=== PATIENT | female | born 1965 | race Caucasian/White ===

== ENCOUNTER → 2017-05-31 | Outpatient (CLI) | payer OTHER ==
[~2017-05-31] MED LIST: ALBINS/ INH; ALBUAER2 INH; ASPI81TA28 PO; CYCL5TAB PO; EPP3; FLUT220A INH; FURO20TA PO; HYDR-3763 PO; HYDR5SYP11 PO; NTRGSL/4 SL; ONDA8TAB62 SL; POTA20TA16 PO; TIOTCAP INH
[2017-05-31 18:49] LABS: BLOOD UREA NITROGEN 4 mg/dl (7-18); CREATININE 1.01 mg/dl (0.60-1.20); GLUCOSE 135 mg/dl (70-99)
[2017-05-31 18:50] LABS: SODIUM 135 mmol/L (136-145)
[2017-05-31 18:52] LABS: CALCIUM 8.6 mg/dl (8.5-10.1); CARBON DIOXIDE 30 mmol/L (21-32)
[2017-05-31 20:44] LABS: POTASSIUM 2.3 mmol/L (3.5-5.1)
== END | disposition home or self-care (01) ==
LOC: C.LABMFLN 12:38
PROVIDERS: ATTEND Physician Assistant
DX: R25.2 Cramp and spasm (principal)

== ENCOUNTER → 2017-06-14 | Outpatient (CLI) | payer OTHER ==
[2017-06-14 18:31] LABS: BLOOD UREA NITROGEN 6 mg/dl (7-18); CALCIUM 8.8 mg/dl (8.5-10.1); CARBON DIOXIDE 22 mmol/L (21-32); CREATININE 0.98 mg/dl (0.60-1.20); GLUCOSE 93 mg/dl (70-99); POTASSIUM 4.3 mmol/L (3.5-5.1); SODIUM 134 mmol/L (136-145)
== END | disposition home or self-care (01) ==
LOC: C.LABMFLN 11:59
PROVIDERS: ATTEND Internal Medicine
DX: E87.6 Hypokalemia (principal)

== ENCOUNTER → 2017-06-18 | Outpatient (CLI) | payer OTHER ==
[2017-06-18 18:09] LABS: BLOOD UREA NITROGEN 5 mg/dl (7-18); CALCIUM 8.5 mg/dl (8.5-10.1); CARBON DIOXIDE 26 mmol/L (21-32); CREATININE 1.02 mg/dl (0.60-1.20); GLUCOSE 112 mg/dl (70-99); POTASSIUM 3.8 mmol/L (3.5-5.1); SODIUM 134 mmol/L (136-145)
== END | disposition home or self-care (01) ==
LOC: C.LABMFLN 12:48
PROVIDERS: ATTEND Physician Assistant
DX: E87.6 Hypokalemia (principal)

== ENCOUNTER → 2017-07-11 | Outpatient (CLI) | payer OTHER ==
[~2017-07-11] MED LIST changes: +POTA-639 PO; -POTA20TA16 PO
--- NOTE | 2017-07-11 14:07 | DIAGNOSTIC IMAGING REPORT ---
PET/CT HISTORY: LUNG CANCER TECHNIQUE: PET/CT was performed from the base of the skull through the pelvis following the intravenous administration of mCi of F18-FDG. Non-contrast CT imaging was performed over the same range without breath-hold for attenuation correction of PET images and anatomic correlation, but not for primary interpretation as it is not of standard diagnostic quality. CT DOSE: COMPARISON: Head CT 04/14/2015. Chest CT 06/19/2017. FINDINGS: HEAD AND NECK: There is no FDG-avid disease or significant lymphadenopathy in the imaged portions of the head and the neck. CHEST: Mild emphysema. Prior right upper lobectomy. Stable linear right perihilar scarlike density and T2 material. 7 mm groundglass nodule within the base the right lower lobe. This appears stable from the recent chest CT. This is not demonstrate abnormal FDG uptake but is likely below the threshold for PET imaging. Stable prominent paratracheal and prevascular lymph nodes. These measure up to 9 mm in short axis diameter. These do not demonstrate significant FDG uptake. No FDG avid or enlarged hilar lymph nodes. The right Port-A-Cath terminates in the right atrium. ABDOMEN/PELVIS: Below the diaphragm, tracer is distributed physiologically in the gastrointestinal and genitourinary tracts. There is no significant lymphadenopathy and no FDG-avid disease. MUSCULOSKELETAL: There is no FDG-avid or destructive bone lesion. IMPRESSION: 1. No FDG avid disease. 2. Stable prominent mediastinal lymph nodes. However, these do not demonstrate significant FDG uptake at this time. 3. A 7 mm groundglass nodule within the base of the right lower lobe. This does not demonstrate abnormal FDG uptake but is likely below the threshold for PET imaging. Six-month chest CT follow up is recommended to ensure stability. Electronically signed by: Tarun Bo M.D. 07/11/2017 2:06 PM Dictated Date/Time: 07/11/2017 1:26 PM
== END | disposition home or self-care (01) ==
LOC: C.PET 10:24
PROVIDERS: ATTEND Physician Assistant
DX: R91.1 Solitary pulmonary nodule (principal)

== ENCOUNTER → 2017-07-17 | Outpatient (CLI) | payer OTHER ==
[2017-07-17 17:47] LABS: BASO % 0.3 %; BASO ABS # 0.02 K/uL (0-0.2); EOS % 1.5 %; EOS ABS # 0.09 K/uL (0-0.5); HEMATOCRIT 42.3 % (37-47); HEMOGLOBIN 14.8 g/dL (12.0-16.0); IG# 0.01 K/uL (0.00-0.02); LYMPH % 32.2 %; LYMPH ABS # 1.95 K/uL (1.2-3.4); MEAN CELL VOLUME 98.8 fL (80-100); MEAN CORPUSCULAR HEMOGLOBIN 34.6 pg (25-34); MEAN PLATELET VOLUME 9.4 fL (7.4-10.4); MONO % 6.8 %; MONO ABS # 0.41 K/uL (0.11-0.59); NEUT ABS # 3.57 K/uL (1.4-6.5); PLATELET COUNT 253 K/uL (130-400); RED CELL DISTRIBUTION WIDTH CV 13.4 % (11.5-14.5); WHITE BLOOD COUNT 6.05 K/uL (4.8-10.8)
[2017-07-17 18:00] LABS: PTT PATIENT 27.8 SECONDS (21.0-31.0)
[2017-07-17 18:03] LABS: BLOOD UREA NITROGEN 4 mg/dl (7-18); CALCIUM 8.4 mg/dl (8.5-10.1); CARBON DIOXIDE 26 mmol/L (21-32); CREATININE 0.83 mg/dl (0.60-1.20); GLUCOSE 102 mg/dl (70-99); POTASSIUM 3.2 mmol/L (3.5-5.1); SODIUM 136 mmol/L (136-145)
== END | disposition home or self-care (01) ==
LOC: C.LABMFLN 12:47
PROVIDERS: ATTEND Physician Assistant
DX: J45.909 Unspecified asthma, uncomplicated (principal); J44.9 Chronic obstructive pulmonary disease, unspecified; R91.8 Other nonspecific abnormal finding of lung field; R06.02 Shortness of breath; R05 Cough; E87.6 Hypokalemia

== ENCOUNTER 2017-07-23 07:42 | Day surgery (SDC) | payer OTHER ==
--- NOTE | 2017-06-04 06:33 | History & Physical Bridge Note ---
H&P Re-Evaluation Bridge Note: I have examined the patient, reviewed the History & Physical and in the interval since the performance of the History & Physical I have noted the following changes of clinical significance: No changes noted
--- NOTE | 2017-06-04 06:34 | Pre Sedation Assessment ---
Pre Sedation Assessment General Date of Sedation: Jun 04, 2017. Pre-Sedation Airway Assessment Smoking Status: Current Every Day Smoker Mallampati Classification: Class II ASA Classification: Class II Procedure Planning Contraindications for Sedation: None Current Medications Reviewed: Yes Notes The planned sedation has been discussed with the patient. Informed Consent was obtained. I have identified the patient, determined the appropriateness of sedation and have assessed the patient immediately prior to the procedure. All medicine(s) and interventions are by my order.
[2017-07-23] VITALS (7 sets, daily range): BP systolic 121–135; BP diastolic 70–96; PULSE 80–92; TEMP 36.5–37.2; O2SAT 92–98; Ht 152.4 cm; Wt 66.0 kg
[~2017-07-23] VITALS: Ht 152.4 cm; Wt 66.0 kg
--- NOTE | 2017-07-23 07:27 | Pre Sedation Assessment ---
Pre Sedation Assessment General Date of Sedation: Jul 23, 2017. Pre-Sedation Airway Assessment Smoking Status: Current Every Day Smoker Mallampati Classification: Class II ASA Classification: Class II Procedure Planning Contraindications for Sedation: None Current Medications Reviewed: Yes Notes The planned sedation has been discussed with the patient. Informed Consent was obtained. I have identified the patient, determined the appropriateness of sedation and have assessed the patient immediately prior to the procedure. All medicine(s) and interventions are by my order.
[2017-07-23] MEDS ORDERED: METO25TA3 PO (08:12)
--- NOTE | 2017-07-23 09:40 | [facility] Operative Report ---
Operative Report Operative Date Jul 23, 2017. Pre-Operative Diagnosis Cough, History of Bronchogenic CA. Post-Operative Diagnosis Cough, History of Bronchogenic CA. Procedure(s) Performed Bronchoscopy Surgeon Dr. Pittman Bottom Worker Surgeon(s) Dr. Pittman Findings Chronic Mucopurulent Bronchitis Complication(s) None Disposition I attest to the content of the Intraoperative Record and any orders documented therein. Any exceptions are noted below.
[2017-07-23] MEDS ORDERED: FENTANYL CITRATE INJ 50 MCG/1 ML 2 ML VIAL IV ONE (09:41)
[2017-07-23] MEDS ORDERED: LEVALBUTEROL 1.25MG/3ML NEB INH ONE (09:41)
[2017-07-23] MEDS ORDERED: LIDOCAINE 4% INH SOLN 4 ML BTL TOP ONE (09:41)
[2017-07-23] MEDS ORDERED: OXYMETAZOLINE HCL 0.05% NA SPR 15 ML BTL ONE (09:41)
[2017-07-23] MEDS ORDERED: LIDOCAINE VISCOUS 2% 100ML TOP ONE (09:41)
[2017-07-23] MEDS ORDERED: MIDAZOLAM HCL 5 MG/ML 1 ML VIAL IV ONE (09:41)
--- NOTE | 2017-07-23 09:44 | Post Sedation Assessment ---
Post Sedation Assessment General Date of Sedation Jul 23, 2017. Vital Signs: Vital Signs Past 12 Hours Date Time Temp Pulse Resp B/P (MAP) Pulse Ox O2 Delivery O2 Flow Rate FiO2 07/23/17 09:10 76 18 137/75 100 Mask 4 07/23/17 09:05 82 18 145/83 97 Mask 4 07/23/17 08:55 83 149/98 97 Room Air 07/23/17 08:17 36.5 80 20 121/74 (90) 97 Room Air Post Procedure Recovery Score Activity: (2) Moves 4 extremities * Respiration: (2) Deep breath/cough Circulation: (2) +/-20% PreAnes Value Consciousness: (1) Arouseable (by name) Oxygen Saturation: (1) O2 needed for >90% Post Anesthesia Score: 8 Discharge Sedation Level of Care: Fast Track Phase II Post Sedation Plan On clinical assessment, the patient appears to have tolerated the sedation without complications. Patient is recovering as anticipated. Patient will continue to be monitored by nursing and may be discharged when sedation discharge criteria are met per below protocol. Upon Completions of procedure and additional 15 minutes continue every 5 minute vital signs and the P.A.R. score; then discharge to a Phase I or Fast Track to Phase II per the following guidelines: * Discharge Patient to appropriate Phase II area if PAR is 8 or greater or return to pre- procedure baseline. The post - procedure orders will be as directed. * If PAR score is less than 8 or not return to pre-procedure baseline then patient will follow Phase I monitoring till PAR is reached for Phase II. The Phase I may be done in procedure room or may call to secure a Phase I area. * If naloxone or flumazenil are used for reversal, hold in Phase I for an additional 60 -120 minutes before discharge to Phase II. Please call the Sedation Physician to re-evaluate and complete post-note for discharge to Phase II area. Do NOT discharge from procedure sedation or Phase 1 until post- sedation evaluation note is complete by procedure /sedation MD Sedation Discharge Instructions to be given to the patient at discharge to home.
--- NOTE | 2017-07-23 09:48 | Discharge Instructions ---
Discharge Instructions Date of Service Jul 23, 2017. Admission Reason for Admission: Cough, Shortness Of Breath, Nodule Discharge Discharge Diagnosis / Problem: Chronic Mucopurulent Bronchitis Discharge Goals Goal(s): Diagnostic testing Activity Recommendations Activity Limitations: resume your previous activity Lifting Limitations: none Exercise/Sports Limitations: none May Resume Sexual Activity: when tolerated Shower/Bathe: no limitations Driving or Machine Use: resume 1 day after discharge None . Instructions / Follow-Up Instructions / Follow-Up ACTIVITY RECOMMENDATIONS: * Rest today, resume normal activity tomorrow. * Do not drive today. SPECIAL CARE INSTRUCTIONS: * Call your physician if you experience any chest or shoulder pain, fever, coughing, spitting up blood (more than 2 teaspoons) or excessive shortness of breath. * Remove dressing from IV site (where needle was placed into the vein) after 2 hours. Apply a warm, moist compress to site if irritation occurs. Call physician if site becomes red or painful to touch. FOLLOW UP VISIT: * Keep any scheduled doctor appointments. Current Hospital Diet Patient's current hospital diet: regular Discharge Diet Recommended Diet: Regular Diet Fluid Restriction: None Procedures Procedures Performed: Bronchoscopy Pending Studies Studies pending at discharge: no Medical Emergencies . Who to Call and When: Medical Emergencies: If at any time you feel your situation is an emergency, please call 911 immediately. . Non-Emergent Contact Non-Emergency issues call your: [place] Worker Call Non-Emergent contact if: temperature is above 101 . . "Provider Documentation" section prepared by Keith Pittman. .
--- NOTE | 2017-07-23 12:04 | OPERATIVE REPORT ---
DATE OF OPERATION: 07/23/2017 PROCEDURE: Fiberoptic bronchoscopy with bronchoalveolar lavage. 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 ANESTHESIA PREOPERATIVELY: None. ANESTHESIA DURING PROCEDURE: IV fentanyl 100 mcg, IV Versed 11 mg, 20 mL 2% Xylocaine spray above and below the cords, 4% viscous Xylocaine intranasally. DESCRIPTION OF PROCEDURE: Fiberoptic bronchoscope was inserted into the left naris with minimal difficulty and passed to the level of true vocal cords. The cords appeared to approximate normally with phonation, without evidence for lesions or paralysis. The area was anesthetized with 2% Xylocaine spray. The scope was then introduced into the trachea and right and left tracheobronchial tree. The right mainstem bronchus was explored initially and no obvious endobronchial lesions were seen. The right upper lobe surgical cuff looked well healed and within normal limits with no endobronchial lesion seen. There was evidence for endoscopic dynamic airway collapse (EDAC) involving the right mainstem bronchus and the posterior membrane to approximately 70%-80% of its usual customary diameter and circumference at end expiration and with paroxysms of coughing. The right bronchus intermedius, right middle lobe in the medial lateral segments, and all basilar segments, right lower lobe were found to be free of endobronchial lesions, but a moderate degree of global inflammatory mucosal change was seen, and the right lower lobe showed a moderate amount of mucopurulent secretion that was lavaged until clear. Left tracheobronchial tree was explored and no obvious endobronchial lesions were seen except involving the lateral wall of the left mainstem bronchus just superior to the subcarinal region where the left upper lobe and lingula orifices were noted. This nodular density was adherent to the lateral wall. The left upper lobe, the apical posterior and anterior segments, lingular subdivision with the superior and inferior segments, and all basilar segments, left lower lobe were found to be free of endobronchial lesions. Scope was then withdrawn to the level of this nodular density, and the area was brushed for cytologic preparation x3, and 2 small biopsies were attempted, and the specimens were sent for histopathologic diagnosis. A mild amount of bleeding was encountered, which abated spontaneously. The area was lavaged with saline. The aspirate also was sent for appropriate studies. Procedure was terminated. The patient tolerated procedure well. She was given a nebulizer treatment with Xopenex 1.25 mg and transferred to medical treatment unit hemodynamically stable, no signs of respiratory compromise. Will await microbiological and cytologic evaluation of bronchial washings and brushings as well as histopathologic diagnosis. I attest to the content of the Intraoperative Record and any orders documented therein. Any exception s are noted below.
[2017-07-25 13:58] LABS: HERPES SIMPLEX VIRUS CULT NOT ISOLATED (NOT ISOLATED)
== END 2017-07-23 12:00 | disposition home or self-care (01) ==
LOC: C.ACU 07:42
PROVIDERS: ATTEND Internal Medicine Pulmonary Disease
DX: R05 Cough (principal); J44.9 Chronic obstructive pulmonary disease, unspecified; R91.8 Other nonspecific abnormal finding of lung field; E78.5 Hyperlipidemia, unspecified; E87.6 Hypokalemia; I25.5 Ischemic cardiomyopathy; F17.200 Nicotine dependence, unspecified, uncomplicated; I51.9 Heart disease, unspecified; Z88.0 Allergy status to penicillin; Z85.118 Personal history of other malignant neoplasm of bronchus and lung; Z99.81 Dependence on supplemental oxygen; Z90.710 Acquired absence of both cervix and uterus